=== PATIENT | female | born 1995 | race Caucasian/White ===

== ENCOUNTER 2016-10-07 12:14 | Emergency (ER) | payer MEDICAID ==
[2016-10-07 12:19] VITALS: RESP 16
[2016-10-07 12:28] LABS: % IMMATURE GRANULYOCYTES 0.3 % (0.0-1.1); ABSOLUTE IMMATURE GRANULOCYTES 0.02 10^3/uL (0.00-0.10); ADD DIFF? NO; ADD MORPH? NO; ADD SCAN? NO; ATYPICAL LYMPHOCYTE FLAG 30 (0-99); FRAGMENT RBC FLAG 0 (0-99); HEMOGLOBIN 14.8 g/dL (12.6-16.3); LEFT SHIFT FLG 0 (0-99); LIPEMIA HEMOLYSIS FLAG 80 (0-99); MEAN CELL HEMOGLOBIN 29.2 pg (27.9-34.1); MEAN CELL HEMOGLOBIN CONCENTR. 33.6 g/dL (32.4-36.7); MEAN PLATELET VOLUME 12.6 fL (8.7-11.7); PLATELET CLUMPS FLAG 0 (0-99); PLATELET COUNT 158 10^3/uL (150-400); RED BLOOD CELL COUNT 5.06 10^6/uL (4.18-5.33); RED CELL DISTRIBUTION WIDTH 14.2 % (11.5-15.2)
[2016-10-07 12:39] LABS: COLOR PALE YELLOW; LEUKOCYTE ESTERASE,URINE NEGATIVE (NEGATIVE); NITRITE,URINE NEGATIVE (NEGATIVE)
[2016-10-07 12:40] LABS: ANION GAP 15 mEq/L (8-16); CALCIUM 9.9 mg/dL (8.5-10.4); CARBON DIOXIDE 26 mEq/l (22-31); CHLORIDE 104 mEq/L (97-110); CREATININE 0.7 mg/dL (0.6-1.0); GLOMERULAR FILTRATION RATE > 60; GLUCOSE 92 mg/dL (70-100); POTASSIUM 4.4 mEq/L (3.5-5.2); SODIUM 145 mEq/L (134-144)
--- NOTE | 2016-10-07 13:05 | EDPHY ---
H & P Stated Complaint: lower abd pain Time Seen by Provider: 10/07/16 13:04 HPI/ROS: CHIEF COMPLAINT: Acute exacerbation of chronic abdominal pain HISTORY OF PRESENT ILLNESS: The patient presents to the emergency department with an acute exacerbation of chronic abdominal pain. The patient reports that she has been dealing with chronic abdominal pain for years. She has had a number of emergency department visits and evaluation by Gastroenterology. She reports remote history of ectopic which she did not have subsequent follow-up with gynecology for. The patient complains of moderate left lower quadrant pain. She denies fever or dysuria. She denies any acute respiratory symptoms. She is currently incarcerated and has been so for the past 2 weeks. She has been taken Tylenol only as an outpatient. REVIEW OF SYSTEMS: A comprehensive 10 point review of systems is otherwise negative aside from elements mentioned in the history of present illness. Source: Patient Exam Limitations: No limitations - Personal History Current Tetanus/Diphtheria Vaccine: Yes Tetanus Vaccine Date: 2013 - Medical/Surgical History Hx Asthma: No Hx Chronic Respiratory Disease: No Hx Diabetes: No Hx Cardiac Disease: No Hx Renal Disease: No Hx Cirrhosis: No Hx Alcoholism: No Hx HIV/AIDS: No Hx Splenectomy or Spleen Trauma: No Other PMH: heroin abuse, pyelonephritis - Social History Smoking Status: Light smoker - Physical Exam Exam: General Appearance: Alert, tearful Eyes: Pupils equal and round no pallor or injection ENT, Mouth: Mucous membranes moist Respiratory: There are no retractions, lungs are clear to auscultation Cardiovascular: Regular rate and rhythm Gastrointestinal: Tenderness to palpation in the left lower quadrant, no right lower quadrant tenderness, no right upper quadrant tenderness Neurological: A&O, normal motor function, normal sensory exam, normal cranial nerves Skin: Warm and dry, no rashes Musculoskeletal: Neck is supple nontender Extremities: symmetrical, full range of motion Constitutional: Initial Vital Signs Temperature (C) 36.6 C 10/07/16 12:17 Heart Rate 90 10/07/16 12:17 Respiratory Rate 16 10/07/16 12:17 Blood Pressure 140/98 H 10/07/16 12:17 O2 Sat (%) 97 10/07/16 12:17 O2 Delivery Mode Room Air Allergies/Adverse Reactions: No Known Allergies Allergy (Unverified 10/25/15 03:32) Home Medications: Medication Instructions Recorded Tylenol 10/07/16 Medical Decision Making - Diagnostics Imaging Results: Imaging Impressions Pelvic/Renal Ultrasound 10/07/16 13:36 Impression: Negative pelvic sonogram. Results called to Dr. Porter Salgado at 2:50 PM. ED Course/Re-evaluation: The patient presents to the ED with an acute exacerbation of chronic abdominal pain. I reviewed the patient's past medical records. She had an IV established. The patient is afebrile. She has no leukocytosis. Her serum chemistries are normal. Her test is also normal. The patient's urinalysis demonstrates no evidence of an infection. Given her tenderness on exam she was taken for a pelvic ultrasound to exclude ovarian torsion. This was ordered by myself at 1:30 p.m.. Patient's pelvic ultrasound demonstrates no evidence of torsion. At this point time I feel she is really presenting with an acute exacerbation of chronic abdominal pain. I do not feel that she has a surgical abdomen. I do feel the patient can continue to work with her regular primary care provider as an outpatient for ongoing management of this 2 year history of intermittent symptoms. Differential Diagnosis: Differential diagnosis considered includes ectopic , ovarian torsion, chronic abdominal pain, diverticulitis, appendicitis - Data Points Laboratory Results: Laboratory Results 10/07/16 12:18 10/07/16 12:18 10/07/16 10/07/16 10/07/16 12:23 12:18 12:18 WBC RBC Hgb Hct MCV MCH MCHC RDW Plt Count MPV Neut % (Auto) Lymph % (Auto) [place] % (Auto) Eos % (Auto) Baso % (Auto) Nucleat RBC Rel Count Absolute Neuts (auto) Absolute Lymphs (auto) Absolute Monos (auto) Absolute Eos (auto) Absolute Basos (auto) Absolute Nucleated RBC Immature Gran % Immature Gran # Sodium 145 mEq/L H mEq/L (134-144) Potassium 4.4 mEq/L mEq/L (3.5-5.2) Chloride 104 mEq/L mEq/L (97-110) Carbon Dioxide 26 mEq/l mEq/l (22-31) Anion Gap 15 mEq/L mEq/L (8-16) BUN 13 mg/dL mg/dL (7-23) Creatinine 0.7 mg/dL mg/dL (0.6-1.0) Estimated GFR > 60 Glucose 92 mg/dL mg/dL (70-100) Calcium 9.9 mg/dL mg/dL (8.5-10.4) Beta HCG, Qual NEGATIVE Urine Color PALE YELLOW Urine Appearance CLEAR Urine pH 6.0 (5.0-7.5) Ur Specific [place] 1.002 (1.002-1.030) Urine Protein NEGATIVE (NEGATIVE) Urine Ketones NEGATIVE (NEGATIVE) Urine Blood NEGATIVE (NEGATIVE) Urine Nitrate NEGATIVE (NEGATIVE) Urine Bilirubin NEGATIVE (NEGATIVE) Urine Urobilinogen NEGATIVE EU EU (0.2-1.0) Ur Leukocyte Esterase NEGATIVE (NEGATIVE) Ur Culture Indicated? NOT INDICATED (NI) Urine Glucose NEGATIVE (NEGATIVE) 10/07/16 12:18 WBC 5.84 10^3/uL 10^3/uL (3.80-9.50) RBC 5.06 10^6/uL 10^6/uL (4.18-5.33) Hgb 14.8 g/dL g/dL (12.6-16.3) Hct 44.0 % % (38.0-47.0) MCV 87.0 fL fL (81.5-99.8) MCH 29.2 pg pg (27.9-34.1) MCHC 33.6 g/dL g/dL (32.4-36.7) RDW 14.2 % % (11.5-15.2) Plt Count 158 10^3/uL 10^3/uL (150-400) MPV 12.6 fL H fL (8.7-11.7) Neut % (Auto) 58.6 % % (39.3-74.2) Lymph % (Auto) 33.4 % % (15.0-45.0) [place] % (Auto) 5.3 % % (4.5-13.0) Eos % (Auto) 1.5 % % (0.6-7.6) Baso % (Auto) 0.9 % % (0.3-1.7) Nucleat RBC Rel Count 0.0 % % (0.0-0.2) Absolute Neuts (auto) 3.42 10^3/uL 10^3/uL (1.70-6.50) Absolute Lymphs (auto) 1.95 10^3/uL 10^3/uL (1.00-3.00) Absolute Monos (auto) 0.31 10^3/uL 10^3/uL (0.30-0.80) Absolute Eos (auto) 0.09 10^3/uL 10^3/uL (0.03-0.40) Absolute Basos (auto) 0.05 10^3/uL 10^3/uL (0.02-0.10) Absolute Nucleated RBC 0.00 10^3/uL 10^3/uL (0-0.01) Immature Gran % 0.3 % % (0.0-1.1) Immature Gran # 0.02 10^3/uL 10^3/uL (0.00-0.10) Sodium Potassium Chloride Carbon Dioxide Anion Gap BUN Creatinine Estimated GFR Glucose Calcium Beta HCG, Qual Urine Color Urine Appearance Urine pH Ur Specific [place] Urine Protein Urine Ketones Urine Blood Urine Nitrate Urine Bilirubin Urine Urobilinogen Ur Leukocyte Esterase Ur Culture Indicated? Urine Glucose Departure - Departure Disposition: Home, Routine, Self-Care Clinical Impression: Chronic abdominal pain Condition: Good Instructions: Chronic Abdominal Pain (ED) Additional Instructions: 1. Tylenol and ibuprofen as needed for pain. 2. Your laboratory testing, ultrasound and urine test all demonstrate no evidence of an abnormality. 3. I do recommend following up with your primary care provider for further management options of your chronic abdominal pain. 4. Your pelvic ultrasound demonstrates no evidence of an ovarian cyst or torsion. You have no evidence of an ectopic or intrauterine . Your blood test is negative. Referrals: ABEL LAWSON [Primary Care Provider] - As per Instructions
[2016-10-07 15:15] VITALS: BP 108/83; PULSE 59; TEMP 98.2; O2SAT 95
== END 2016-10-07 15:13 | disposition home or self-care (01) ==
DX: R10.32 Left lower quadrant pain (principal); G89.29 Other chronic pain; F17.200 Nicotine dependence, unspecified, uncomplicated

== ENCOUNTER 2017-12-20 20:18 | Emergency (ER) | payer MEDICAID ==
--- NOTE | 2017-12-20 20:44 | EDPHY ---
H & P Smoking Status: Heavy smoker Time Seen by Provider: 12/20/17 20:27 HPI/ROS: CHIEF COMPLAINT: Left-sided chest pain and abdominal pain. HISTORY OF PRESENT ILLNESS: Patient is a 22-year-old female with history of polysubstance abuse who this evening was at a AA meeting when she was having a cigarette outside and developed left-sided pleuritic chest pain. States the pain had persisted for about an hour and then as mostly resolved. She denies any hemoptysis, history of pulmonary embolism, oral contraceptive use, history of PE or DVT. She denies any fever or cough. She is in a rehab program currently and has been sober for about 2 weeks. She also reports about 2 weeks of worsening abdominal pain that is mostly left-sided. She denies any pain with urination, , hematuria, fever, diarrhea, vomiting. REVIEW OF SYSTEMS: Constitutional: No fever, no chills. Eyes: No discharge. ENT: No sore throat. Cardiovascular: + chest pain, no palpitations. Respiratory: No cough, no shortness of breath. Gastrointestinal: + abdominal pain, no vomiting. Genitourinary: No hematuria. Musculoskeletal: No back pain. Skin: No rashes. Neurological: No headache. (Aurelio Morales) Physical Exam: General Appearance: Alert and no distress. ENT: normal dentition. No tonsillar exudate or swelling. Eyes: Pupils equal and round no injection. Respiratory: Chest is nontender, lungs are clear to auscultation. Cardiac: regular rate and rhythm. No lower extremity edema Gastrointestinal: Abdomen is soft and nontender, no masses, bowel sounds normal. Musculoskeletal: Neck is supple and nontender. Extremities have full range of motion and are nontender without deformity Skin: No rashes or lesions. Neuro: Cranial nerves grossly intact. No nystagmus. (Aurelio Morales) Constitutional: Initial Vital Signs Temperature (C) 36.4 C 12/20/17 20:23 Heart Rate 89 12/20/17 20:23 Respiratory Rate 16 12/20/17 20:23 Blood Pressure 136/57 H 12/20/17 20:23 O2 Sat (%) 97 12/20/17 20:23 O2 Delivery Mode Room Air Allergies/Adverse Reactions: No Known Allergies Allergy (Verified 12/20/17 20:22) Home Medications: Medication Instructions Recorded Ptsd Medication 12/20/17 Medical Decision Making ED Course/Re-evaluation: Patient's history and physical most consistent with chest pain likely due to irritation from cigarette smoking. She has no pneumothorax or infiltrate on x- ray. She is perc rule negative for pulmonary embolism. She is not hypoxic. Abdominal exam reveals no tenderness and her labs are unremarkable and urinalysis shows no UTI and she is serum negative for . (Aurelio Morales) I did not see or evaluated this patient while she was in the ER. (Dennis Montes De Oca) Differential Diagnosis: , appendicitis, bowel obstruction, pyelonephritis or UTI. (Aurelio Morales) - Data Points Laboratory Results: Laboratory Results 12/20/17 20:52 12/20/17 20:52 Medications Given: Discontinued Medications Ibuprofen (Motrin) 800 mg PO EDNOW ONE Stop: 12/20/17 21:01 Last Admin: 12/20/17 21:12 Dose: 800 mg Departure - Departure Disposition: Home, Routine, Self-Care Clinical Impression: Abdominal pain, Chest pain Condition: Good Instructions: Chest Pain (ED) Additional Instructions: Return to the ER if he have worsening symptoms including shortness of breath, worsening abdominal pain, fever. Referrals: NONE *PRIMARY CARE P,. [Primary Care Provider] - As per Instructions [facility],. [Clinic] - As per Instructions
[2017-12-20] MEDS ORDERED: IBUPROFEN 600 MG TAB PO ONE (21:00)
[2017-12-20 21:07] LABS: PLATELET COUNT 200 10^3/uL (150-400)
[2017-12-20] MEDS ORDERED: IBUPROFEN 800 MG TAB PO ONE (21:10)
[2017-12-20 21:44] VITALS: BP 117/61
== END 2017-12-20 21:44 | disposition home or self-care (01) ==
DX: R07.89 Other chest pain (principal); R10.9 Unspecified abdominal pain; F17.200 Nicotine dependence, unspecified, uncomplicated

== ENCOUNTER 2018-01-13 12:57 | Emergency (ER) | payer MEDICAID ==
[~2018-01-13 12:57] MED LIST: CLINDAMYCIN 150 MG CAP PO SCH
[2018-01-13] MEDS ORDERED: KETOROLAC 15 MG/1 ML SDV IVP ONE (13:49)
[2018-01-13] MEDS ORDERED: NS 1,000 ML IV ONE (13:49)
--- NOTE | 2018-01-13 13:49 | EDPHY ---
General Time Seen by Provider: 01/13/18 13:42 Narrative: CHIEF COMPLAINT: Facial pain, neck pain, tooth extraction HISTORY OF PRESENT ILLNESS: Patient presents by private vehicle with complaints of facial pain, right jaw neck pain. Pain started over the past 24 hr. She feels the symptoms have worsened over the course. Pain is moderate to severe in the right mandible and into the right side of the neck. No fever. No difficulty opening her mouth. It is painful to open her mouth. She has no headache. She does have recent tooth extractions on Sunday, 5 days ago. These are teeth 16. And numbers / 31 and 32. She has no other associated complaints or modifying factors. REVIEW OF SYSTEMS: 10 systems were reviewed and negative with the exception of the elements mentioned in the history of present illness. PCP: None SPECIALISTS: [facility]ST MEDICAL HISTORY: PTSD, previous substance abuse, pyelonephritis, pancreatitis, hep C PAST SURGICAL HISTORY: Recent tooth extractions SOCIAL HISTORY: Lives independently. FAMILY HISTORY: Noncontributory EXAMINATION: Vitals: Triage VS reviewed General Appearance: Alert, no distress. Nontoxic and well-appearing. Head: normocephalic, atraumatic Eyes: Pupils equal and round, no conjunctival pallor or injection ENT, Mouth: Mucous membranes moist. Tooth 16. Recently extracted with closed mucosal margins. Teeth number 31 and 32 recently extracted with open socket. No active bleeding. No pulpitis. No fluctuance or obvious dental abscess. There is no trismus, stridor or drooling. Airway widely patent Neck: Normal inspection, supple, right-sided lymphadenopathy in tenderness. No meningismus. Respiratory: Normal work of breathing. No retractions or distress Cardiovascular: Regular rate with good signs of perfusion. Neurological: A&O, nonfocal, normal gait Skin: Warm and dry, no rash. No evidence of facial cellulitis. DIFFERENTIAL DIAGNOSES: Including but not limited to dental abscess, mandibular abscess, facial abscess , cellulitis, edema MDM: 1:40 p.m. Mild facial edema and right-sided neck pain lymphadenopathy with recent dental extractions. I do not appreciate any fluctuance or cellulitis of the face. There is no meningismus of the neck. Given her recent extractions I have ordered CT with contrast of the neck soft tissue to rule out possibility of abscess. I have ordered IV placement, IV fluid and IV Toradol. She is in no acute distress with vital signs all within normal limits. 2:30 p.m. Laboratory studies unremarkable. CT scan pending. 3:45 p.m. Notified by radiologist Dr. Aranda. We discussed the CT scan of the neck soft tissue. There are changes in the wound beds but no evidence of abscess. Patient re-evaluated. She is feeling well. We discussed the radiology findings. We discussed need for follow-up with her dentist tomorrow for definitive care. We discussed clindamycin exchange for amoxicillin. We discussed ED precautions. She is comfortable this plan. She is well- appearing. Discharged home stable condition. SUPERVISION: This patient was independently evaluated without direct involvement of or examination by the attending physician. CONSULTATION: None - Diagnostics Imaging Results: Imaging Impressions Neck CT 01/13/18 13:49 Impression: 1. Fluid and a small amount of air noted associated with the socket where the tooth was removed. 2. No evidence for deep space abscess formation and no drainable fluid collection is seen. Clinical follow-up by the patient's oral surgeon could be considered. Results called and discussed with Kolton Rodgers PA-C on January 13, 2018 at 1549 hours. Imaging: Discussed imaging studies w/ talent acquisition specialist Radiologist, I viewed and interpreted images myself - History Smoking Status: Heavy smoker - Objective Vital Signs: Initial Vital Signs Temperature (C) 98.2 F 01/13/18 12:59 Heart Rate 74 01/13/18 12:59 Respiratory Rate 18 01/13/18 12:59 Blood Pressure 121/71 H 01/13/18 12:59 O2 Sat (%) 99 01/13/18 12:59 O2 Delivery Mode Room Air Allergies/Adverse Reactions: No Known Allergies Allergy (Verified 12/20/17 20:22) Home Medications: Medication Instructions Recorded Ptsd Medication 12/20/17 Clindamycin 450 mg PO TID #60 cap 01/13/18 oxyCODONE HCL/ACETAMINOPHEN 1 each PO Q4-6PRN PRN #7 tablet 01/13/18 [Percocet 5-325 mg Tablet] Laboratory Results: 01/13/18 01/13/18 14:00 14:00 POC Hgb 12.6 gm/dL gm/dL (12.6-16.3) POC Hct 37 % L % (38-47) POC Sodium 142 mEq/L mEq/L (135-145) POC Potassium 3.8 mEq/L mEq/L (3.3-5.0) POC Chloride 101 mEq/L mEq/L (97-110) POC BUN 8 mg/dL mg/dL (7-23) POC Creatinine 0.6 mg/dL mg/dL (0.6-1.0) POC Glucose 89 mg/dL mg/dL (70-100) Beta HCG, Qual NEGATIVE Medications Given: Discontinued Medications Sodium Chloride (Ns) 1,000 mls @ 0 mls/hr IV EDNOW ONE; Wide Open PRN Reason: Protocol Stop: 01/13/18 13:50 Last Admin: 01/13/18 13:58 Dose: 1,000 mls Ketorolac Tromethamine (Toradol) 15 mg IVP EDNOW ONE Stop: 01/13/18 13:50 Last Admin: 01/13/18 13:57 Dose: 15 mg Point of Care Test Results: Chemistry 01/13/18 14:00 POC Sodium 142 mEq/L mEq/L (135-145) POC Potassium 3.8 mEq/L mEq/L (3.3-5.0) POC Chloride 101 mEq/L mEq/L (97-110) POC BUN 8 mg/dL mg/dL (7-23) POC Creatinine 0.6 mg/dL mg/dL (0.6-1.0) POC Glucose 89 mg/dL mg/dL (70-100) ISTAT H&H 01/13/18 14:00 POC Hgb 12.6 gm/dL gm/dL (12.6-16.3) POC Hct 37 % L % (38-47) Departure - Departure Disposition: Home, Routine, Self-Care Clinical Impression: Post-operative pain, Pain, dental Condition: Good Instructions: Toothache (ED) Additional Instructions: 1. Clindamycin as prescribed to completion 2. Pain medication as prescribed as needed. Do not mix with any other substances 3. You need to follow up with your dentist tomorrow for postoperative follow-up 4. Return here for any difficulty opening or closing her mouth, fever, facial pain or swelling Referrals: ABEL LAWSON [Primary Care Provider] - As per Instructions Jordon Ríos DDS [Doctor of Dental Surgery] - As per Instructions Prescriptions: Clindamycin 450 mg PO TID #60 cap oxyCODONE HCL/ACETAMINOPHEN [Percocet 5-325 mg Tablet] 1 each PO Q4-6PRN PRN #7 tablet PRN Reason: Pain, Breakthrough
[2018-01-13] MEDS ORDERED: IOPAMIDOL (ISOVUE-300) 100 ML BTL ONE (14:41)
[2018-01-13 16:02] VITALS: BP 105/60
== END 2018-01-13 16:31 | disposition home or self-care (01) ==
DX: K08.89 Other specified disorders of teeth and supporting structures (principal); R51 Headache; M54.2 Cervicalgia; E86.9 Volume depletion, unspecified; Z98.818 Other dental procedure status
CPT/HCPCS: 82435-PO; 82565-PO; 82947-PO; 84132-PO; 84295-PO; 84520-PO; 85014-PO; 96374; J1885; Q9967